=== PATIENT | female | born 1980 | race American Indian/Alaskan Native ===

== ENCOUNTER → 2018-09-10 | Emergency (ER) | payer OTHER ==
[~2018-09-10] VITALS: Ht 162.6 cm; Wt 94.5 kg
[~2018-09-10] MED LIST: ACYCLOVIR800 MG PO; NORCO 5-325 TA1 EACH PO; TYLENOL COLD &1 EACH PO; ZOFRAN4 MG PO
== END ==
LOC: ED 22:30
DX: J06.9 Acute upper respiratory infection, unspecified (principal); H66.92 Otitis media, unspecified, left ear; F17.200 Nicotine dependence, unspecified, uncomplicated; Z88.0 Allergy status to penicillin
CPT/HCPCS: 99283

== ENCOUNTER 2021-12-26 21:48 | Emergency (ER) | payer OTHER ==
[~2021-12-26] VITALS: Ht 162.6 cm; Wt 111.8 kg
[~2021-12-26 21:48] MED LIST changes: +COUMADIN1 MG PO
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
[2021-12-26] MEDS ORDERED: ONDANSETRON ODT8 MG PO (23:46)
[2021-12-26] MEDS ORDERED: ULTRAM50 MG PO (23:46)
== END 2021-12-27 00:11 | disposition home or self-care (01) ==
LOC: ED 21:48
DX: S06.0X9A Concussion with loss of consciousness of unspecified duration, initial encounter (principal); F17.200 Nicotine dependence, unspecified, uncomplicated; Z88.0 Allergy status to penicillin; Z88.1 Allergy status to other antibiotic agents; X58.XXXA Exposure to other specified factors, initial encounter
CPT/HCPCS: 36415; 70450; 80053; 81001; 84703; 85025; 96374; 96375; 99285-25; A9270; G0480; J1885; J2405

== ENCOUNTER 2022-01-03 18:41 | Emergency (ER) | payer OTHER ==
[~2022-01-03] VITALS: Ht 162.6 cm; Wt 96.3 kg
[~2022-01-03 18:41] MED LIST changes: +ONDANSETRON ODT8 MG PO; +ULTRAM50 MG PO
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
== END 2022-01-03 20:50 | disposition home or self-care (01) ==
LOC: ED 18:41
DX: G43.909 Migraine, unspecified, not intractable, without status migrainosus (principal); S06.0X0D Concussion without loss of consciousness, subsequent encounter; Y04.2XXD Assault by strike against or bumped into by another person, subsequent encounter; F17.200 Nicotine dependence, unspecified, uncomplicated; Z86.711 Personal history of pulmonary embolism; Z88.0 Allergy status to penicillin
CPT/HCPCS: J0780; J1200; J1885; J7121